=== PATIENT | male | born 1990 | race Caucasian/White ===

== ENCOUNTER 2020-05-04 18:36 | Emergency (ER) | payer BC, OTHER ==
[~2020-05-04] VITALS: Ht 177.8 cm; Wt 75.0 kg
[~2020-05-04 18:36] MED LIST: epiNEPHrine 0.1mg/ml 10ml syringe ONE; etomidate 2mg/ml inj. ONE; rocuronium 10mg/ml inj IV ONE; sodium bicarbonate (8.4%) 1 mEq/ml syringe ONE
== END 2020-05-04 20:02 | disposition expired ==
LOC: ER 18:37
DX: I46.9 Cardiac arrest, cause unspecified (principal); F12.90 Cannabis use, unspecified, uncomplicated; Z88.8 Allergy status to other drugs, medicaments and biological substances
CPT/HCPCS: 92950; 99285; J0171; 99291